=== PATIENT | female | born 1965 | race Two or more races ===

== ENCOUNTER 2018-06-21 09:08 | Outpatient (CLI) | payer OTHER ==
[~2018-06-21 09:08] MED LIST: ANTIVERT25 M1; BENADRYL25 MG/STRI PO; BENTYL10 MG/ML; DOLOGEN CAPLET1 TAB PO; DOLOGESIC CAPLE1 TAB PO; LASIX20 MG PO; LEVOXYL50 MCG; LEVSIN/SL0.125 MG SL; MEDROL4 MG PO; MEDROLPACK PO; NEURONTIN300 MG PO; ORPH100T PO; PRILOSEC20 MG; PRILOSEC20 MG PO; PROTONIX40 MG; ULTRACET PO; UNITHROID25 MCG; ZOFRAN4 MG PO
== END 2018-06-21 09:14 | disposition home or self-care (01) ==
LOC: SONOGRAMA 09:08
DX: C77.0 Secondary and unspecified malignant neoplasm of lymph nodes of head, face and neck (principal)

== ENCOUNTER 2018-07-11 19:35 | Emergency (ER) | payer OTHER ==
[~2018-07-11] VITALS: Ht 154.9 cm; Wt 76.7 kg
[2018-07-11] MEDS ORDERED: NORVASC5 MG (20:12)
[2018-07-11] MEDS ORDERED: DIAZEPAM10 MG PO (21:26)
== END 2018-07-11 22:53 | disposition home or self-care (01) ==
LOC: ER 19:35
DX: M54.2 Cervicalgia (principal)

== ENCOUNTER 2018-12-13 13:57 | Emergency (ER) | payer OTHER ==
[~2018-12-13] VITALS: Ht 162.6 cm; Wt 74.8 kg
[~2018-12-13 13:57] MED LIST changes: +DIAZEPAM10 MG PO; +NORVASC5 MG
== END 2018-12-13 20:25 | disposition home or self-care (01) ==
LOC: ER 13:57
DX: R00.2 Palpitations (principal)

== ENCOUNTER 2019-02-24 00:04 | Emergency (ER) | payer OTHER ==
[~2019-02-24] VITALS: Ht 154.9 cm; Wt 78.9 kg
[2019-02-24] MEDS ORDERED: SYNTHROID88 MCG PO (00:24)
[2019-02-24] MEDS ORDERED: OMEPRAZOLE20 MG PO (00:25)
[2019-02-24] MEDS ORDERED: ZANTAC150 MG PO (00:25)
== END 2019-02-24 06:42 | disposition home or self-care (01) ==
LOC: ER 00:04
DX: K29.70 Gastritis, unspecified, without bleeding (principal); R53.81 Other malaise

== ENCOUNTER 2019-04-06 19:49 | Emergency (ER) | payer OTHER ==
[~2019-04-06] VITALS: Ht 157.5 cm; Wt 61.2 kg
[~2019-04-06 19:49] MED LIST changes: +OMEPRAZOLE20 MG PO; +SYNTHROID88 MCG PO; +ZANTAC150 MG PO
== END 2019-04-06 21:35 | disposition home or self-care (01) ==
LOC: ER 19:49
DX: M94.0 Chondrocostal junction syndrome [Tietze] (principal)